=== PATIENT | female | born 1990 | race Caucasian/White ===

== ENCOUNTER 2023-02-25 06:41 | Day surgery (SDC) | payer SELFPAY ==
[~2023-02-25 06:41] MED LIST: LR 1,000 ML IV SCH
[2023-02-25 06:56] VITALS: BP 151/88; PULSE 84; TEMP 98.2
--- NOTE | 2023-02-25 07:25 | NUR ---
PT AND FAMILY UP TO FLOOR AT THIS TIME. VITALS STABLE, A/O X4, STEADY GAIT. IV STARTED IN RIGHT FOREARM, FLUIDS HANGING. WILL CONTINUE TO MONITOR.
[2023-02-25] MEDS ORDERED: PULMICORT90 MCG/Act (07:28)
[2023-02-25] MEDS ORDERED: ALBUTEROL0.83 MG/ML IH (07:29)
[2023-02-25] MEDS ORDERED: droPERidol 2.5 MG/ML 2 ML VIAL IV PRN (07:30)
[2023-02-25] MEDS ORDERED: Ondansetron 4 MG/2 ML VIAL IV PRN ×2 (07:30→09:30)
[2023-02-25] MEDS ORDERED: hydrALAZINE 20 MG/ML 1 ML VIAL IV PRN (07:30)
[2023-02-25] MEDS ORDERED: fentaNYL 50 MCG/ML 2 ML VIAL IV PRN (07:30)
[2023-02-25] MEDS ORDERED: HYDROmorphone 2 MG/1 ML VIAL IV PRN (07:30)
[2023-02-25] MEDS ORDERED: PEPCID AC 10MG10 MG (07:30)
[2023-02-25] MEDS ORDERED: FERRO-TIME325 MG (07:31)
[2023-02-25] MEDS ORDERED: FLOMAX 0.40.4 MG/CAP PO (07:32)
[2023-02-25] MEDS ORDERED: fentaNYL 50 MCG/ML 2 ML VIAL ONE (08:02)
[2023-02-25] MEDS ORDERED: Lidocaine PF 2% (20 MG/ML) 5 ML VIAL ONE (08:03)
[2023-02-25] MEDS ORDERED: Ondansetron 4 MG/2 ML VIAL ONE (08:03)
[2023-02-25] MEDS ORDERED: NS 10 ML IV ONE (08:03)
[2023-02-25] MEDS ORDERED: dexAMETHasone 10 MG/ML VIAL ONE (08:03)
[2023-02-25] MEDS ORDERED: Furosemide 40 MG/4 ML VIAL ONE (08:36)
[2023-02-25] MEDS ORDERED: PYRIDIUM 100MG100 MG PO (09:22)
[2023-02-25] MEDS ORDERED: Hyoscyamine 0.125 MG Sublingual TAB SL PRN (09:30)
[2023-02-25] MEDS ORDERED: Acetaminophen 325 MG TAB PO PRN (09:30)
[2023-02-25] MEDS ORDERED: Naloxone 0.4 MG/ML VIAL IV PRN (09:30)
[2023-02-25] MEDS ORDERED: Lidocaine 2% (20 MG/ML) 20 ML UROJET UR ONE (10:07)
[2023-02-25] MEDS ORDERED: Acetaminophen 500 MG TAB PO SCH (10:18)
[2023-02-25 10:40] VITALS: BP 112/58; PULSE 80; TEMP 98.2
[2023-02-25 10:55] VITALS: BP 124/61; PULSE 87; TEMP 97.7
[2023-02-25 11:10] VITALS: BP 122/60; PULSE 86; TEMP 97.7
[2023-02-25 11:28] VITALS: BP 110/60; PULSE 81; TEMP 98.2
--- NOTE | 2023-02-25 12:02 | NUR ---
Data: Beekeeper Farmer visit attempted during Beekeeper Farmer rounds. Assessment: No bed and no Patient in room at that time. Plan of Care: Chaplains will remain available as needed/requested while Patient is admitted to this hospital.
--- NOTE | 2023-02-25 12:38 | NUR ---
DISCHARGE INSTRUCTIONS PROVIDED TO PT AND DELPHINE. DISCUSSED FOLLOW UP APPOINTMENTS, NEW MEDICATIONS, AND SIGNS OF INFECTIN. IV REMOVED. PT ESCORTED OUT OF BUILDING AT THIS TIME.
== END 2023-02-25 12:26 | disposition home or self-care (01) ==
LOC: SDCO 06:41 → SURG 06:41 → EDSTATUS 10:00 → SDCO 10:00 → SURG 12:26 → SDCO 12:26
DX: N20.1 Calculus of ureter (principal)
CPT/HCPCS: OP; C1769; G0378; J0690; J1100; J1940; J2405; J2704; J3010; J7120